=== PATIENT | male | born 1980 | race Caucasian/White ===

== ENCOUNTER → 2023-04-02 | Emergency (ER) | payer OTHER ==
[~2023-04-02] VITALS: Ht 167.6 cm; Wt 73.9 kg
[~2023-04-02] MED LIST: DOLOGESIC-DF 51 EACH PO; ZYNCOF 20-400120 ML PO
[2023-04-03 00:38] LABS: HEMATOCRIT 45.6 % (39.0-48.0); HEMOGLOBIN 15.1 g/dL (13-16.00); MEAN CELL VOLUME 90.3 fL (80.0-100.00); MEAN CORPUSCULAR HGB CONC 33.2 g/dl (32.0-36.0); PLATELET COUNT 193 K/uL (150-450); RED BLOOD COUNT 5.04 M/uL (4.00-6.00)
[2023-04-03 00:49] LABS: CALCIUM 8.5 mg/dL (8.5-10.1); CREATININE SERUM 1.12 mg/dL (0.70-1.30); GFR 71.9; POTASSIUM 3.85 mEq/L (3.5-5.1)
[2023-04-03 01:00] LABS: PH,URINE 5.5 (5.0-8.0); URINE APPEARANCE Clear; URINE BILIRRUBIN Negative (NEGATIVE); URINE BLOOD Negative; URINE COLOR Yellow; URINE GLUCOSE Negative (NEGATIVE); URINE LEUKOCYTE Negative; URINE NITRATE Negative; URINE PROTEIN Trace (NEGATIVE); URINE UROBILINOGEN 0.2 E.U./dl
[2023-04-03 01:04] LABS: URINE EPITHELIAL CELLS 3.5 uL (0.0-38.8); URINE RBC 3.1 uL (0.0-20.8); URINE WBC 3.4 uL (0.0-23.2)
[2023-04-03 01:17] LABS: URINE BACTERIA 3.7 uL (0.0-1933)
== END | disposition home or self-care (01) ==
LOC: ER 21:55
PROVIDERS: General Practice
DX: J10.1 Influenza due to other identified influenza virus with other respiratory manifestations (principal); R50.9 Fever, unspecified; Z20.822 Contact with and (suspected) exposure to COVID-19